=== PATIENT | male | born 2000 | race Caucasian/White ===

== ENCOUNTER → 2019-04-28 | Outpatient (CLI) | payer SELFPAY | LOC: COL.RAD 12:14 | DX: M25.512 Pain in left shoulder (principal) ==

== ENCOUNTER 2021-03-25 01:11 | Emergency (ER) | payer BC ==
[~2021-03-25] VITALS: Ht 154.9 cm; Wt 122.7 kg
[2021-03-25 01:18] VITALS: BP 129/74; PULSE 76; TEMP 97.9
== END 2021-03-25 02:00 | disposition home or self-care (01) ==
LOC: COL.ER 01:11
DX: S49.91XA Unspecified injury of right shoulder and upper arm, initial encounter (principal); X50.9XXA Other and unspecified overexertion or strenuous movements or postures, initial encounter; Y93.54 Activity, bowling

== ENCOUNTER 2021-06-28 20:53 | Emergency (ER) | payer OTHER ==
[~2021-06-28] VITALS: Ht 180.3 cm; Wt 137.3 kg
[2021-06-28 21:41] VITALS: TEMP 97.1
[2021-06-28 22:52] VITALS: BP 115/80; PULSE 78
== END 2021-06-28 22:52 | disposition home or self-care (01) ==
LOC: COL.ER 20:53
DX: S00.83XA Contusion of other part of head, initial encounter (principal); W50.0XXA Accidental hit or strike by another person, initial encounter

== ENCOUNTER 2024-02-24 01:31 | Emergency (ER) | payer SELFPAY ==
[~2024-02-24] VITALS: Ht 180.3 cm; Wt 122.7 kg
[2024-02-24 01:34] VITALS: BP 132/77; PULSE 75; TEMP 97.5
== END 2024-02-24 02:55 | disposition home or self-care (01) ==
LOC: COL.ER 01:31
DX: M25.572 Pain in left ankle and joints of left foot (principal)